=== PATIENT | male | born 1950 | race Caucasian/White ===

== ENCOUNTER → 2016-11-18 | Outpatient (REF) | payer MEDICARE, OTHER ==
[~2016-11-18] MED LIST: ASPI1TAB PO; CIAL5TAB PO; FEXO60CA PO; FLON50SP; HYDR12.55 PO; LISI-542 PO; LORT5TAB PO; METF500T PO; NEXI20GR PO; ROSU10TA2 PO; VITACAP35 PO
== END ==
LOC: M LAB REF 13:16
PROVIDERS: ATTEND Internal Medicine
DX: N52.9 Male erectile dysfunction, unspecified (principal)

== ENCOUNTER → 2017-05-22 | Outpatient (REF) | payer MEDICARE, OTHER ==
[~2017-05-22] MED LIST changes: -METF500T PO; +METF500T13 PO
== END ==
LOC: M LAB REF 09:09
PROVIDERS: ATTEND Internal Medicine
DX: N52.9 Male erectile dysfunction, unspecified (principal)

== ENCOUNTER → 2017-11-24 | Outpatient (REF) | payer MEDICARE ==
[2017-11-24 15:12] LABS: TESTOSTERONE 322 NG/DL (241-827)
== END ==
LOC: M LAB REF 13:23
DX: E29.1 Testicular hypofunction (principal)
CPT/HCPCS: 84403

== ENCOUNTER → 2018-03-14 | Outpatient (CLI) | payer MEDICARE | LOC: M EKG 09:21 | DX: Z01.818 Encounter for other preprocedural examination (principal) | CPT/HCPCS: 93005 ==

== ENCOUNTER 2018-03-17 11:57 | Day surgery (SDC) | payer MEDICARE ==
[~2018-03-17 11:57] MED LIST changes: -ASPI1TAB PO; -CIAL5TAB PO; -FEXO60CA PO; -FLON50SP; -HYDR12.55 PO; +LIDOCAINE 2% INJ 100 MG/5 ML SDV (FOR ANES.) As Ordered; -LISI-542 PO; -LORT5TAB PO; -METF500T13 PO; +MIDAZOLAM INJ 2 MG/2 ML VIAL (J2250) As Ordered; -NEXI20GR PO; +ONDANSETRON 4MG/2ML VIAL (J2405) As Ordered; +PROPOFOL 200 MG/20 ML VIAL As Ordered; +ROCURONIUM BROMIDE 50 MG/5 ML VIAL As Ordered; -ROSU10TA2 PO; -VITACAP35 PO; +dexameTHASONE 4 MG/ML 1ML VIAL (J1100) As Ordered; +fentaNYL 250 MCG/5 ML INJECTION (J3010) As Ordered
[2018-03-17] MEDS ORDERED: LR 1,000 ML IV ×2 (12:15→15:45)
[2018-03-17 13:51] LABS: BEDSIDE GLUCOSE 119 MG/DL (83-110)
[2018-03-17] MEDS ORDERED: NEOSTIGMINE 10 MG/10 ML VIAL (J2710) As Ordered (14:17)
[2018-03-17] MEDS ORDERED: GLYCOPYRROLATE INJ 0.2 MG/ML 2 ML VIAL As Ordered (14:17)
[2018-03-17] MEDS ORDERED: PHENYLephrine HCL 500 MCG/5 ML (100MCG/ML) SYRINGE (J2370) As Ordered (14:18)
[2018-03-17] MEDS: METHYLENE BLUE 0.5% (5MG/ML) 10 ML AMP (PROVAYBLUE)(Q9968 PER 1MG) As Ordered (14:28)
[2018-03-17] MEDS: EPINEPHrine INJ 1 MG/ML 1ML AMP As Ordered (14:29)
[2018-03-17] MEDS: OXYMETAZOLINE NASAL SPRAY (AFRIN) As Ordered (14:30)
[2018-03-17] MEDS: EPINEPHrine 1MG/ML INJ 30ML MD-VIAL As Ordered (14:50)
[2018-03-17] MEDS: LIDOCAINE W/EPINEPHRINE 1% 20ML VIAL As Ordered (15:03)
[2018-03-17] MEDS ORDERED: PERCOCET 5MG/325MG TAB As Ordered (15:27)
[2018-03-17] MEDS: PERCOCET 5MG/325MG TAB PO ×2 (15:30→15:57)
[2018-03-17] MEDS ORDERED: fentaNYL 100 MCG/2 ML INJECTION (J3010) IV (15:45)
[2018-03-17] MEDS ORDERED: PERCOCET 5MG/325MG TAB PO (15:45)
== END 2018-03-17 17:35 | disposition home or self-care (01) ==
LOC: M SDC 11:57
DX: J34.2 Deviated nasal septum (principal); J32.0 Chronic maxillary sinusitis; E11.9 Type 2 diabetes mellitus without complications; Z79.82 Long term (current) use of aspirin; I10 Essential (primary) hypertension; Z79.899 Other long term (current) drug therapy; E78.5 Hyperlipidemia, unspecified; K21.9 Gastro-esophageal reflux disease without esophagitis; N40.0 Benign prostatic hyperplasia without lower urinary tract symptoms
CPT/HCPCS: 30520

== ENCOUNTER 2023-09-03 09:10 | Day surgery (SDC) | payer OTHER, MEDICARE ==
[~2023-09-03] VITALS: Ht 180.3 cm; Wt 79.3 kg
[~2023-09-03 09:10] MED LIST changes: +ASPI81TA26 PO; +BSS IRRIG/VANCO(10MG)/TOBRA(5MG)/EPINEPH(1:1000-0.5CC)500ML BAG-ORONLY IR ONE; +CEFUROXIME 1MG/0.1ML INTRACAMERAL INJ As Ordered ONE; +CHOL1250 PO; +CIAL5TAB PO; +CYCLOPENTOLATE 1% OPHTH SOLN 2ML BTL OS SCH; +FEXO60TA99 PO; +FLON50SP; +HYDR12.55 PO; +LIDOCAINE 1% SDV 5ML VIAL As Ordered ONE; -LIDOCAINE 2% INJ 100 MG/5 ML SDV (FOR ANES.) As Ordered; +LIDOCAINE 3.5 % 1ML OPHTH TOPICAL GEL OU ONE; +LISI20TA33 PO; +LISI5TAB11 PO; +LORT5TAB PO; +METF500T13 PO; -MIDAZOLAM INJ 2 MG/2 ML VIAL (J2250) As Ordered; +NEXI20GR PO; +OFLOXACIN 0.3 % (OCUFLOX) OPTH SOL 5ML OS ONE; -ONDANSETRON 4MG/2ML VIAL (J2405) As Ordered; +PHENYLEPHRINE 10% OPHTH SOL 5ML OS PRN; +PHENYLEPHRINE 2.5% OPHTH SOL 2ML OS SCH; -PROPOFOL 200 MG/20 ML VIAL As Ordered; -ROCURONIUM BROMIDE 50 MG/5 ML VIAL As Ordered; +ROSU10TA6 PO; +TROPICAMIDE 1% OPHTH SOLN 15ML OS SCH; +VITA500046 PO; +VITACAP35 PO; -dexameTHASONE 4 MG/ML 1ML VIAL (J1100) As Ordered; -fentaNYL 250 MCG/5 ML INJECTION (J3010) As Ordered
[2023-09-03] MEDS ORDERED: fentaNYL 100 MCG/2 ML INJECTION As Ordered ONE (10:54)
[2023-09-03] MEDS ORDERED: MIDAZOLAM INJ 2MG/2ML VIAL As Ordered ONE (10:54)
[2023-09-03 12:47] VITALS: BP 144/65; TEMP 97.8; O2SAT 98
== END 2023-09-03 13:13 | disposition home or self-care (01) ==
LOC: M SDC 09:10
PROVIDERS: ATTEND Ophthalmology
DX: H25.12 Age-related nuclear cataract, left eye (principal); I10 Essential (primary) hypertension; E78.5 Hyperlipidemia, unspecified; E11.9 Type 2 diabetes mellitus without complications; K21.9 Gastro-esophageal reflux disease without esophagitis; N40.0 Benign prostatic hyperplasia without lower urinary tract symptoms; Z79.82 Long term (current) use of aspirin; Z79.84 Long term (current) use of oral hypoglycemic drugs; Z79.899 Other long term (current) drug therapy
CPT/HCPCS: 66984; 92015; J0697; J2250; J3010; V2788

== ENCOUNTER 2023-09-10 08:12 | Day surgery (SDC) | payer OTHER, MEDICARE ==
[~2023-09-10] VITALS: Ht 180.3 cm; Wt 79.8 kg
[~2023-09-10 08:12] MED LIST changes: +CYCLOPENTOLATE 1% OPHTH SOLN 2ML BTL OD SCH; -CYCLOPENTOLATE 1% OPHTH SOLN 2ML BTL OS SCH; +MIDAZOLAM INJ 2MG/2ML VIAL As Ordered ONE; +OFLOXACIN 0.3 % (OCUFLOX) OPTH SOL 5ML OD ONE; -OFLOXACIN 0.3 % (OCUFLOX) OPTH SOL 5ML OS ONE; +PHENYLEPHRINE 10% OPHTH SOL 5ML OD PRN; -PHENYLEPHRINE 10% OPHTH SOL 5ML OS PRN; +PHENYLEPHRINE 2.5% OPHTH SOL 2ML OD SCH; -PHENYLEPHRINE 2.5% OPHTH SOL 2ML OS SCH; +TROPICAMIDE 1% OPHTH SOLN 15ML OD SCH; -TROPICAMIDE 1% OPHTH SOLN 15ML OS SCH; +fentaNYL 100 MCG/2 ML INJECTION As Ordered ONE
[2023-09-10 09:45] VITALS: BP 135/93; TEMP 97.7; O2SAT 95
== END 2023-09-10 09:57 | disposition home or self-care (01) ==
LOC: M SDC 08:12
PROVIDERS: ATTEND Ophthalmology
DX: E11.36 Type 2 diabetes mellitus with diabetic cataract (principal); H25.11 Age-related nuclear cataract, right eye; I10 Essential (primary) hypertension; E78.00 Pure hypercholesterolemia, unspecified; N40.0 Benign prostatic hyperplasia without lower urinary tract symptoms; Z79.899 Other long term (current) drug therapy; Z79.82 Long term (current) use of aspirin
CPT/HCPCS: 66984; 92015; J0697; J2250; J3010; V2788

== ENCOUNTER 2024-03-31 06:23 | Day surgery (SDC) | payer OTHER, MEDICARE ==
[~2024-03-31] VITALS: Ht 180.3 cm; Wt 78.5 kg
[~2024-03-31 06:23] MED LIST changes: -BSS IRRIG/VANCO(10MG)/TOBRA(5MG)/EPINEPH(1:1000-0.5CC)500ML BAG-ORONLY IR ONE; -CEFUROXIME 1MG/0.1ML INTRACAMERAL INJ As Ordered ONE; -CYCLOPENTOLATE 1% OPHTH SOLN 2ML BTL OD SCH; -LIDOCAINE 1% SDV 5ML VIAL As Ordered ONE; -LIDOCAINE 3.5 % 1ML OPHTH TOPICAL GEL OU ONE; +MENSCAP PO; -MIDAZOLAM INJ 2MG/2ML VIAL As Ordered ONE; +NS 1,000 ML IV ONE; -OFLOXACIN 0.3 % (OCUFLOX) OPTH SOL 5ML OD ONE; -PHENYLEPHRINE 10% OPHTH SOL 5ML OD PRN; -PHENYLEPHRINE 2.5% OPHTH SOL 2ML OD SCH; -ROSU10TA6 PO; +ROSU10TA61 PO; -TROPICAMIDE 1% OPHTH SOLN 15ML OD SCH; -fentaNYL 100 MCG/2 ML INJECTION As Ordered ONE
[2024-03-31] MEDS ORDERED: LIDOCAINE 2% 100MG/5ML SDV (FOR ANES.) As Ordered ONE (07:00)
[2024-03-31] MEDS ORDERED: propofoL 200 MG/20 ML VIAL As Ordered ONE (07:00)
[2024-03-31] MEDS ORDERED: ALLE12TA31 PO (07:11)
[2024-03-31 07:48] VITALS: TEMP 96.4
[2024-03-31 08:01] VITALS: BP 153/74; O2SAT 97
[2024-03-31] MEDS ORDERED: fentaNYL 100 MCG/2 ML INJECTION As Ordered ONE (12:17)
== END 2024-03-31 08:06 | disposition home or self-care (01) ==
LOC: M OPP 06:23
PROVIDERS: ATTEND Surgery
DX: Z12.11 Encounter for screening for malignant neoplasm of colon (principal); Z86.010 Personal history of colon polyps; K63.5 Polyp of colon; E11.9 Type 2 diabetes mellitus without complications; Z87.891 Personal history of nicotine dependence; Z79.02 Long term (current) use of antithrombotics/antiplatelets; Z79.82 Long term (current) use of aspirin; Z79.84 Long term (current) use of oral hypoglycemic drugs; Z79.899 Other long term (current) drug therapy